=== PATIENT | male | born 1970 | race Caucasian/White ===

== ENCOUNTER 2019-12-19 10:32 | Emergency (ER) | payer BC, SELFPAY | END 2019-12-19 10:40 | disposition left against medical advice (07) | DX: Z53.21 Procedure and treatment not carried out due to patient leaving prior to being seen by health care provider (principal) | CPT/HCPCS: 99199 ==

== ENCOUNTER 2022-10-27 15:04 | Emergency (ER) | payer BC, SELFPAY ==
--- NOTE | ~2022-10-27 | XR_ITS ---
EXAMINATION: XR chest 2V Exam Date/Time: 10/27/2022 15:43 CDT HISTORY: cough chest congestion, weakness, fatigue Comparison: None. RESULT: Lines, tubes, and devices: None. Lungs and pleura: Clear. Cardiomediastinal silhouette: Unremarkable. Other: No acute osseous or upper abdominal finding. IMPRESSION: No acute cardiopulmonary process. Reviewed, dictated and finalized at location K.
[2022-10-27 15:14] VITALS: BP 169/97; PULSE 78; RESP 14; TEMP 36.6; O2SAT 100
--- NOTE | 2022-10-27 15:20 | ED.GENADULT ---
HPI - General Adult General Chief complaint: Unspecified Stated complaint: fatigue Time Seen by Provider: 10/27/22 15:20 Source: patient Mode of arrival: ambulatory Limitations: no limitations History of Present Illness HPI narrative: 52-year-old male presents with complaint of fatigue, headache the past several days. 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 Patient states that he was told by [facility] and that he is seen by a medical facility a provider can fill out the medical necessity form for his power to be turned back on. He says he is drinking plenty of water and no studies not dehydration. Denies muscle cramps. States that his urine is clear. pt states he can't get any rest at home because is house is so hot inside. All systems reviewed and negative except as noted above. Related Data Home Medications Medication Instructions Recorded Confirmed No Home Medications 10/27/22 10/27/22 Allergies Allergy/AdvReac Type Severity Reaction Status Date / Time No Known Allergies Allergy Verified 10/27/22 15:15 Review of Systems Review of Systems: CONSTITUTIONAL: Denies fever, chills, or sweats. Reports fatigue. EYES: Denies visual changes, redness, or discharge. ENT: Denies rhinorrhea, congestion, sore throat, or otalgia. CARDIOVASCULAR: Denies chest pain, palpitations, or edema. RESPIRATORY: Denies cough or dyspnea. GASTROINTESTINAL: Denies abdominal pain, nausea, vomiting, or diarrhea. GENITOURINARY: Denies dysuria or hematuria. SKIN: Denies rash or itching. MUSCULOSKELETAL: Denies back pain, joint pain, or myalgia. NEUROLOGIC: Reports headache. denies numbness, or weakness. PSYCHIATRIC: Denies anxiety or depression. All other systems reviewed are negative, except as documented in HPI. PMFSH Comments At time of signature, agree with nursing past medical, surgical, social and family history. There is no relevant family history pertinent to the presenting complaint. Exam Narrative: GENERAL: This is a well-nourished, well-developed patient, in no apparent distress. HEAD: normocephalic, atraumatic. EYES: PERRL. Sclera clear/white. Extraocular movements intact EARS: External ears normal, auditory canals clear and without drainage, TMs normal without perforation. Hearing grossly intact. NOSE: External nose normal with no obvious nasal discharge, nares without redness, no rhinorrhea. THROAT: Mucous membranes moist, posterior pharynx clear. NECK: Neck supple, non-tender without lymphadenopathy, masses or thyromegaly. CARDIOVASCULAR: Regular rate and rhythm without murmurs, gallops, or rubs. RESPIRATORY: rhonchi bilateral Lower lung haas. Breath sounds equal bilaterally. No wheezes, rales, or rhonchi. SKIN: warm, Dry, intact with no suspicious lesions or rash, good texture and turgor. NEURO: awake, alert, and oriented to person, place and time. There were no obvious focal neurologic abnormalities. EXTREMITIES: No joint tenderness, effusion, or edema noted. Course Course Level of Care: Express Care Visit Vital Signs Vital signs: Vital Signs Temperature 36.6 C 10/27/22 15:14 Pulse Rate 78 10/27/22 15:14 Respiratory Rate 14 10/27/22 15:14 Blood Pressure 169/97 H 10/27/22 15:14 Pulse Oximetry 100 10/27/22 15:14 Oxygen Delivery Room Air 10/27/22 15:14 Temperature 36.6 C 10/27/22 15:14 Pulse Rate 78 10/27/22 15:14 Respiratory Rate 14 10/27/22 15:14 Blood Pressure 169/97 H 10/27/22 15:14 Pulse Oximetry 100 10/27/22 15:14 Oxygen Delivery Room Air 10/27/22 15:14 reviewed Medical Decision Making MDM Narrative Medical decision making narrative: normal urinalysis and blood sugar. Chest x-ray is normal. Patient does not have any concerns that he is dehydrated or suffering from heat exhaustion. He does not want to be transferred to the ER for lab work and IV fl
[2022-10-27 15:35] LABS: Glucose Point of Care 106 mg/dl (65-105)
== END 2022-10-27 16:08 | disposition home or self-care (01) ==
PROVIDERS: Emergency Provider Nurse Practitioner Family; PCP Emergency Medicine
DX: R53.83 Other fatigue (principal)
CPT/HCPCS: 71046; 81003; 82948; 99213; G0463

== ENCOUNTER 2023-04-28 12:37 | Emergency (ER) | payer BC, SELFPAY ==
--- NOTE | ~2023-04-28 | XR_ITS ---
Left Knee Technique: AP, lateral, and sunrise views were obtained. Clinical History: Pain Findings: No fracture or dislocation is seen. There is medial compartment narrowing. There is moderat e patellar spurring with mild degenerative spurring otherwise in the knee.. Soft tissues are unremark able. No joint effusion is seen. Impression: Degenerative change, as above. Reviewed, dictated and finalized at location M. R TRIMMER Impression: Degenerative change, as above.
--- NOTE | ~2023-04-28 | XR_ITS ---
Right Knee Technique: AP, lateral, and sunrise views were obtained. Clinical History: Pain Findings: No fracture or dislocation is seen. There is medial compartment narrowing. There is mild tr icompartmental spurring.. Moderate joint effusion is seen. There are loose bodies in the supra patell ar pouch. 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 Moderate joint effusion. Probable loose bodies in the suprapatellar pouch versus less likely enthesopathic change. Reviewed, dictated and finalized at location M. 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 Moderate joint effusion. Probable loose bodies in the suprapatellar pouch versus less likely enthesopath ic change.
[2023-04-28 12:45] VITALS: BP 146/83; PULSE 90; RESP 16; TEMP 36.7; O2SAT 100
--- NOTE | 2023-04-28 13:21 | ED.GENADULT ---
HPI - General Adult General Chief complaint: Extremity Injury, Lower Stated complaint: Knee pain Time Seen by Provider: 04/28/23 12:51 History of Present Illness HPI narrative: 52-year-old male presenting to the ED for evaluation of bilateral knee pain. 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 Patient denies any acute falls or injuries. Related Data Allergies Allergy/AdvReac Type Severity Reaction Status Date / Time No Known Allergies Allergy Verified 04/28/23 12:49 Review of Systems Review of Systems: All systems reviewed & are unremarkable except as noted in HPI and below Exam Narrative: APPEARANCE: Well appearing, no pain, no distress, well-nourished. HEAD: normocephalic, atraumatic. EYES: PERRLA/EOMI, conjunctivae clear. NOSE: Normal no drainage EARS:TMS clear with good light reflex. THROAT: Pharynx clear, no exudate. NECK: Supple. No adenopathy, no masses. RESPIRATORY: Airway patent, respirations nonlabored. Clear to auscultation bilaterally, no rales, rhonchi, wheezing. CARDIOVASCULAR: Regular rate and rhythm without murmurs rubs or gallops. ABDOMINAL: Soft, nontender, nondistended, normal bowel sounds MUSCULOSKELETAL: Bilateral knee pain, no erythema, no effusion, no tenderness to palpation NEURO: Alert. Cranial nerves II through XII intact. Good gait. Good coordination SKIN: Warm, dry. Normal Color Course Course Emergency Course: 52-year-old male presenting ED for complaint chronic knee pain. Knee x-ray show Degenerative changes bilaterally with no acute changes. Patient was started on Medrol Dosepak and patient declined any other medications for pain control. Patient was encouraged close follow-up with Orthopedics. Vital Signs Vital signs: Vital Signs Temperature 98.0 F 04/28/23 12:45 Pulse Rate 90 04/28/23 12:45 Respiratory Rate 16 04/28/23 12:45 Blood Pressure 146/83 H 04/28/23 12:45 Pulse Oximetry 100 04/28/23 12:45 Oxygen Delivery Room Air 04/28/23 12:45 Temperature 98.0 F 04/28/23 12:45 Pulse Rate 90 04/28/23 12:45 Respiratory Rate 16 04/28/23 12:45 Blood Pressure 146/83 H 04/28/23 12:45 Pulse Oximetry 100 04/28/23 12:45 Oxygen Delivery Room Air 04/28/23 12:45 Medical Decision Making Vital Signs Vital Signs: Vital Signs Temperature 98.0 F 04/28/23 12:45 Pulse Rate 90 04/28/23 12:45 Respiratory Rate 16 04/28/23 12:45 Blood Pressure 146/83 H 04/28/23 12:45 Pulse Oximetry 100 04/28/23 12:45 Oxygen Delivery Room Air 04/28/23 12:45 Temperature 98.0 F 04/28/23 12:45 Pulse Rate 90 04/28/23 12:45 Respiratory Rate 16 04/28/23 12:45 Blood Pressure 146/83 H 04/28/23 12:45 Pulse Oximetry 100 04/28/23 12:45 Oxygen Delivery Room Air 04/28/23 12:45 Imaging Data Radiologist's impression: Impressions Knee X-Ray 04/28/23 14:00 Impression: Tricompartment osteoarthritis, as detailed above, 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 Moderate joint effusion. Probable loose bodies in the suprapatellar pouch versus less likely enthesopathic change. Knee X-Ray 04/28/23 14:01 Impression: Degenerative change, as above. Discharge Plan Discharge Clinical Impression: Acute bilateral knee pain Patient Disposition: Home, Self-Care Condition: Stable Instructions: Antibiotic Form Additional Instructions: X-rays of the knees bilaterally showed degenerative changes. Tylenol for pain control. Medrol Dosepak as directed. Have close follow-up with Orthopedics. If you have any worsening symptoms and please call or return to the emergency department. Prescriptions: New methylprednisolone [Methylpred DP] 4 mg tablets,dose pack See Rx Instructions .ROUTE .COMPLEX Qty: 21 0RF Rx Instructions: orally per package directions Follow-up/Referrals: Gino Rahman MD [Primary Care Provider] - Nikko Martell MD [Physicia
== END 2023-04-28 14:23 | disposition home or self-care (01) ==
PROVIDERS: Emergency Provider Emergency Medicine; PCP Emergency Medicine
DX: M25.562 Pain in left knee (principal); M25.561 Pain in right knee
CPT/HCPCS: 73562; 99284

== ENCOUNTER → 2023-05-12 09:43 | Emergency (ER) | payer BC, SELFPAY | END | disposition left against medical advice (07) | PROVIDERS: PCP Emergency Medicine | DX: Z53.21 Procedure and treatment not carried out due to patient leaving prior to being seen by health care provider (principal) | CPT/HCPCS: 99199 ==

== ENCOUNTER 2023-05-14 09:30 | Emergency (ER) | payer BC, SELFPAY | END 2023-05-14 10:27 | disposition home or self-care (01) | PROVIDERS: Emergency Provider Nurse Practitioner; PCP Emergency Medicine; Visit Provider Nurse Practitioner | DX: M17.0 Bilateral primary osteoarthritis of knee (principal) | CPT/HCPCS: 99213; G0463 ==

== ENCOUNTER 2023-06-17 11:59 | Emergency (ER) | payer BC, SELFPAY ==
[2023-06-17 12:12] VITALS: BP 160/93; PULSE 83; RESP 16; TEMP 36.7; O2SAT 100
--- NOTE | 2023-06-17 12:43 | ED.EXTPRO ---
HPI - Extremity Problem General Chief complaint: Extremity Problem,Nontraumatic Stated complaint: Both Knees Pain Time Seen by Provider: 06/17/23 12:43 Source: patient Mode of arrival: ambulatory Limitations: no limitations History of Present Illness HPI Narrative: 52 yo M presents with c/o pain to both knees. reports hx of arthritis to both knees. Was given meloxicam at last visit and states that he really helped his pain. Will not take tylenol for pain, doesnt think it helps. BP elevated today. Does not have PCP. all systems reviewed and negative except as noted above. Related Data Allergies Allergy/AdvReac Type Severity Reaction Status Date / Time No Known Allergies Allergy Verified 04/28/23 12:49 Review of Systems Review of Systems: CONSTITUTIONAL: Denies fever, chills, or sweats. EYES: Denies visual changes, redness, or discharge. ENT: Denies rhinorrhea, congestion, sore throat, or otalgia. CARDIOVASCULAR: Denies chest pain, palpitations, or edema. RESPIRATORY: Denies cough or dyspnea. GASTROINTESTINAL: Denies abdominal pain, nausea, vomiting, or diarrhea. GENITOURINARY: Denies dysuria or hematuria. SKIN: Denies rash or itching. MUSCULOSKELETAL: Denies back pain . Reports pain to bilateral knees. NEUROLOGIC: Denies headache, numbness, or weakness. PSYCHIATRIC: Denies anxiety or depression. All other systems reviewed are negative, except as documented in HPI. PMFSH Comments At time of signature, agree with nursing past medical, surgical, social and family history. There is no relevant family history pertinent to the presenting complaint. Exam Narrative: GENERAL: This is a well-nourished, well-developed patient, in no apparent distress. HEAD: normocephalic, atraumatic. EYES: PERRL. Sclera clear/white. Vision is grossly intact. EARS: External ears normal NOSE: External nose normal NECK: Neck supple, non-tender without lymphadenopathy, masses or thyromegaly. CARDIOVASCULAR: Regular rate and rhythm without murmurs, gallops, or rubs. RESPIRATORY: Clear to auscultation. Breath sounds equal bilaterally. No wheezes, rales, or rhonchi. SKIN: warm, Dry, intact with no suspicious lesions or rash, good texture and turgor. NEURO: awake, alert, and oriented to person, place and time. There were no obvious focal neurologic abnormalities. EXTREMITIES: Mild swelling, generalized tenderness to bilateral knees without erythema or warmth on palpation Course Course Level of Care: Express Care Visit Vital Signs Vital signs: Vital Signs Temperature 36.7 C 06/17/23 12:12 Pulse Rate 83 06/17/23 12:12 Respiratory Rate 16 06/17/23 12:12 Blood Pressure 160/93 H 06/17/23 12:12 Pulse Oximetry 100 06/17/23 12:12 Oxygen Delivery Room Air 06/17/23 12:12 Temperature 36.7 C 06/17/23 12:12 Pulse Rate 83 06/17/23 12:12 Respiratory Rate 16 06/17/23 12:12 Blood Pressure 160/93 H 06/17/23 12:12 Pulse Oximetry 100 06/17/23 12:12 Oxygen Delivery Room Air 06/17/23 12:13 reviewed MDM - Extremity (Nontraumatic) MDM Narrative Medical decision making narrative: patient's blood pressure elevated today. Recommend he follow up with primary care physician at next available appointment. Will not prescribe meloxicam today due to this medication being in the and sad class of medications which elevate blood pressure. Explained this to patient. Patient is aware of diagnosis, understands and agrees to treatment plan. Anticipatory guidance given. Patient agrees to follow-up as directed and is aware of reasons to seek care at the emergency department. Portions of this record may have been created with voice recognition software Discharge Plan Discharge Clinical Impression: Acute bilateral knee pain, Elevated blood pressure reading Patient Disposition: Home, Self-Care Condition: Stable Instructions: Knee Pain (ED), Hypertension (ED), Arthritis (ED) Additional Instruction
== END 2023-06-17 12:57 | disposition home or self-care (01) ==
PROVIDERS: Emergency Provider Nurse Practitioner Family; PCP Emergency Medicine
DX: M25.562 Pain in left knee (principal); M25.561 Pain in right knee; R03.0 Elevated blood-pressure reading, without diagnosis of hypertension
CPT/HCPCS: 99213; G0463